=== PATIENT | female | born 1980 | race Caucasian/White ===

== ENCOUNTER → 2018-03-18 08:45 | Outpatient (CLI) | payer MEDICAID ==
--- NOTE | ~2018-03-18 | EC ---
PATIENT:YESY RANDALL DATE OF SERVICE: 03/18/18 SEX: F MEDICAL RECORD: [id number] DATE OF : [birth year] LOCATION:[facility] AGE OF PATIENT: 37 ADMISSION DATE: 03/18/18 REFERRING PHYSICIAN: INTERPRETING PHYSICIAN: MORENA TANNER MD ECHOCARDIOGRAM REPORT ECHO CHARGES 4 ECHO COMPLETE Date: 03/18 CLINICAL DIAGNOSIS: CP, DYSPENA ECHOCARDIOGRAPHIC MEASUREMENTS (adult normal given) AC root (d.<3.7cm) 2.8 cm LV Septum d (<1.2 cm> 1.3 cm Valve Excursion 1.8 cm LV Septum (systole) 1.5 cm Left Atria (s.<4.0cm> 3.4 cm LVPW d(<1.2cm) 1.0 cm RV (d.<2.3cm) 2.4 cm LVPW (sytole) 1.1 cm LV diastole(<5.6CM) 4.8 cm MV E-F(>70mm/sec) cm LV systole 3.9 cm LVOT Diameter 1.9 cm MV exc.(>10mm) cm Est.ejection fraction (50-75%) % DOPPLER: LVIT cm/sec A 47 cm/sec E 94 cm/sec LA cm/sec RVSP 20.1 mmHg LVOT 140 cm/sec AOP1/2T m/s Asc. Ao 143 cm/sec RVOT 71 cm/sec RA cm/sec PA 86 cm/sec AV Gradient Peak 8.2 mmHg AV Mean 4.5 mmHg AV Area 2.8 cm MV Gradient Peak 3.8 mmHg MV Mean 1.4 mmHg MV Area cm COMMENTS: Nursing Coordinator: Bashir [facility] Weaving Inspector: Silvio Tanner TAPE# PACS Pericardial Effusion N DATE OF SERVICE: PROCEDURE: Transthoracic echocardiogram. FINDINGS: 1. Left ventricle is normal size, shape, structure, and function. Inflow characteristics are normal. Ejection fraction is 60%. 2. The right atrium is normal size, shape, and function. 3. The left atrium is normal. 4. The aortic valve is normal. ECHOCARDIOGRAM REPORT [id number] YESY RANDALL 5. The right atrium is normal. 6. The mitral valve is structurally normal. 7. The tricuspid valve has trace tricuspid regurgitation. 8. The RVSP is normal. CONCLUSIONS: This is a normal echocardiogram for the patient's stated age. TRANSINT:[id number] Voice Confirmation ID: [id number] DOCUMENT ID: [id number] MORENA TANNER MD at 0841 CC: [id number] DICTATION DATE: 03/19/18829 PERSONAL BANKING OFFICER: 03/19/18 1036 DEP CLI 03/18/18 [facility] [address] [id number]
[2018-03-18 16:55] LABS: CHOL - HDL RATIO 3.6 ratio (2.3-4.1)
== END | disposition home or self-care (01) ==
LOC: D.RT 08:45
PROVIDERS: Internal Medicine Cardiovascular Disease
DX: R06.02 Shortness of breath (principal); R07.9 Chest pain, unspecified